=== PATIENT | female | born 1940 | race Caucasian/White ===

== ENCOUNTER → 2019-03-25 | Outpatient (CLI) | payer MEDICARE, OTHER ==
[2019-03-25 13:59] LABS: Basophils % (A) 0 %; Eosinophils # (A) 0.1 k/uL (0-0.7); Eosinophils % (A) 2 %; HGB 13.6 gm/dL (11.4-16.0); Lymphocytes # (A) 1.8 k/uL (1.0-4.8); Lymphocytes % (A) 22 %; MCH 27.7 pg (25.0-35.0); MCHC 32.4 g/dL (31.0-37.0); MCV 85.6 fL (80.0-100.0); Mean Platelet Volume 6.9; Monocytes # (A) 0.4 k/uL (0-1.0); Monocytes % (A) 5 %; Neutrophils # (A) 5.5 k/uL (1.3-7.7); Neutrophils % (A) 69 %; Platelet Count 309 k/uL (150-450); RDW 13.4 % (11.5-15.5)
[2019-03-25 14:09] LABS: Potassium 4.5 mmol/L (3.5-5.1)
== END | disposition home or self-care (01) ==
LOC: LABWHC1 13:08
PROVIDERS: ATTEND Orthopaedic Surgery
DX: Z01.818 Encounter for other preprocedural examination (principal); Z01.812 Encounter for preprocedural laboratory examination; M23.92 Unspecified internal derangement of left knee
CPT/HCPCS: 36415; 80051; 85025; 93005

== ENCOUNTER 2019-04-08 10:16 | Day surgery (SDC) | payer MEDICARE, OTHER ==
[2019-04-05 15:54] VITALS: BMI 26.2
--- NOTE | 2019-04-07 11:17 | HP ---
HISTORY AND PHYSICAL CHIEF COMPLAINT: Left knee pain. HISTORY OF PRESENT ILLNESS: The patient is a 79-year-old retired female who presents with progressive left knee pain for the past several months. She notes medial pain along with swelling and giving way. She has had night symptoms as well. She is limited because of this. She has tried anti-inflammatories in addition to an injection with only partial temporary relief. She has resorted to using a cane. PAST MEDICAL HISTORY: Significant for arthritis. PAST SURGICAL HISTORY: Negative. CURRENT MEDICATION: Ibuprofen. ALLERGIES: She denies drug allergies. FAMILY HISTORY: Family history is negative. SOCIAL HISTORY: Negative for current tobacco or alcohol use. REVIEW OF SYSTEMS: Sixteen-point review of systems otherwise reviewed and is noncontributory. PHYSICAL EXAMINATION: On examination, the patient is approximately 4 feet 11 inches, 130 pounds of mesomorphic habitus. HEENT exam is nonfocal. Neck is supple. She has painless passive motion of her left hip. Straight leg raise is negative. Active motion left knee -10 to 120 degrees of flexion. She has mild effusion. She is tender about the medial joint line. Collaterals stable, Raciel's negative, Claude's elicits medial pain. Her distal neurovascular exam appears intact in the left lower extremity. MRI report for the left knee 03/22/2019 shows a posteromedial meniscal tear. IMPRESSION: Left knee internal derangement with symptomatic medial meniscal tear. RECOMMENDATIONS: I talked to the patient at length regarding her condition and treatment options. At this point, she is having persistent pain and mechanical symptoms that limit her despite conservative measures. After thorough discussion, she opts to proceed with surgery. We will plan to proceed with arthroscopic evaluation with possible partial medial meniscectomy. Risks and benefits were discussed at length in layman's terms. We will likely perform that as an outpatient procedure. MMODL / IJN: [id number] /
[~2019-04-08 10:16] MED LIST: DEXAMETHASONE SOD PHOSPHATE 10 MG/ML 1 ML VIAL IV ONE; HYDROmorphone 0.5 MG/0.5 ML SYRINGE IVP PRN; LACTATED RINGERS 1,000 ML IV SCH; MIDAZOLAM 2 MG/2 ML VIAL IV PRN; ONDANSETRON 4 MG/2 ML VIAL IVP ONE
[2019-04-08] MEDS ORDERED: LIDOCAINE 1% 20 ML VIAL (10MG/ML) FOR IV START INTRADERMA ONE (10:58)
[2019-04-08] MEDS ORDERED: LIDOCAINE 1% INJ 10MG/ML (20 ML MDV) ONE (12:03)
[2019-04-08] MEDS ORDERED: fentaNYL (PF) 50 MCG/ML 2 ML AMP ONE (12:03)
[2019-04-08] MEDS ORDERED: PROPOFOL 10 MG/ML 20 ML VIAL IV ONE (12:03)
[2019-04-08] MEDS ORDERED: MIDAZOLAM 2 MG/2 ML VIAL ONE (12:03)
--- NOTE | 2019-04-08 12:41 | P.OP ---
Date of Procedure: 04/08/19 Preoperative Diagnosis: Left knee internal derangement Postoperative Diagnosis: Left knee posterior medial meniscal tear Procedure(s) Performed: Left knee arthroscopic partial medial meniscectomy Anesthesia: VENESSAA Surgeon: Darius Soni Estimated Blood Loss (ml): 10 Pathology: none sent Condition: stable Disposition: PACU Indications for Procedure: The patient's a 79-year-old female who presents with progressive right knee pain and mechanical symptoms despite conservative measures. A discussion of the risks and benefits of operative intervention versus continued conservative measures was made with the patient. She opted to proceed with surgery. Operative risks to include infection, neurovascular injury, development of blood clots, possible incomplete resolution of symptoms, possible worsening of symptoms and need for subsequent procedures was discussed. Informed consent was obtained. Operative Findings: As below Description of Procedure: The patient was brought to the operating room, and after induction of general anesthesia examined the left knee. Collaterals were stable, Raciel was negative, and posterior drawer was negative. The left lower extremity was prepped and draped in a normal fashion. A superior lateral portal was made through a 3 mm skin incision superior and lateral to the patella. This was used for outflow. A lateral portal was made through a 5 mm vertical skin incision lateral to the patella tendon above the joint line. Diagnostic arthroscopy was performed. On inspection of the medial compartment, a complex tear involving the posterior most aspect of the medial meniscus was noted. This was not amenable to repair. This was debrided back to stable base with straight baskets and a motorized shaver. Diffuse grade 2/3 chondral changes were noted in the medial compartment. On inspection of the notch, the anterior cruciate ligament appeared to be intact. On inspection of the lateral compartment no significant meniscal or cartilage pathology was noted. On inspection of the patellofemoral articulation there grade 2 chondral changes diffusely. The gutters were clear debris. The knee was then thoroughly irrigated. The portals were closed with Steri-Strips. A sterile dressing was applied in addition to a compression stocking. The patient was awoken from general anesthesia and transferred to recovery room in good condition. Blood loss was estimated at 10 mL. No complications were incurred.
[2019-04-08] MEDS ORDERED: hydrALAZINE HCL 20 MG/ML 1 ML VIAL IVP ONE (12:47)
[2019-04-08 13:00] VITALS: RESP 20; TEMP 98
[2019-04-08] MEDS ORDERED: MEPERIDINE 50 MG/ML SYRINGE IVP ONE (13:14)
[2019-04-08 14:11] VITALS: BP 130/61; PULSE 87
== END 2019-04-08 14:32 | disposition home or self-care (01) ==
LOC: OR 10:16
PROVIDERS: ATTEND Orthopaedic Surgery
DX: S83.232A Complex tear of medial meniscus, current injury, left knee, initial encounter (principal); X58.XXXA Exposure to other specified factors, initial encounter; M19.90 Unspecified osteoarthritis, unspecified site; Z79.1 Long term (current) use of non-steroidal anti-inflammatories (NSAID)
CPT/HCPCS: 29881; J2250; J0360; J1100; J2175; J2405; J2001; J3010; J2704